=== PATIENT | female | born 1955 | race Caucasian/White ===

== ENCOUNTER 2020-01-01 21:05 | Inpatient (IN) | payer OTHER, MEDICAID, SELFPAY ==
[~2020-01-01] VITALS: Ht 160 cm; Wt 45.4 kg
[2020-01-01 21:13] VITALS: Ht 160 cm; Wt 45.4 kg
[2020-01-01 22:05] LABS: BASOPHIL % 0.5 % (0-2); PLATELET COUNT 356 x10^3mcL (130-400); RED CELL DISTRIBUTION WIDTH 15.5 % (11.5-14.5)
[2020-01-01 22:21] LABS: CALCIUM 8.7 mg/dL (8.5-10.1); CARBON DIOXIDE 27.1 mmol/L (21-32); CREATININE SERUM 1.1 mg/dL (0.6-1.0); POTASSIUM SERUM 3.1 mmol/L (3.5-5.1)
[2020-01-01 22:26] LABS: ALBUMIN 3.5 g/dL (3.4-5.0); BILIRUBIN TOTAL 0.12 mg/dL (0.20-1.00); TOTAL PROTEIN, SERUM 6.6 g/dL (6.4-8.2)
[2020-01-02] VITALS (7 sets, daily range): BP systolic 116–149; BP diastolic 86–94
[2020-01-02 01:13] LABS: microscopic required? YES; urine erythrocyte NEGATIVE (NEGATIVE)
[2020-01-02 01:19] LABS: AMPHETAMINE QUAL UR NONE DETECTED (See below)
[2020-01-02 07:20] LABS: BASOPHIL % 0.2 % (0-2); PLATELET COUNT 324 x10^3mcL (130-400)
[2020-01-02 07:35] LABS: RED CELL DISTRIBUTION WIDTH 15.5 % (11.5-14.5)
[2020-01-02 09:00] LABS: CALCIUM 8.7 mg/dL (8.5-10.1); CARBON DIOXIDE 24.2 mmol/L (21-32); CHLORIDE SERUM 107 mmol/L (98-107); CREATININE SERUM 0.8 mg/dL (0.6-1.0); GFR1 > 60 mL/min; GLUCOSE SERUM 135 mg/dL (74-106); PHOSPHOROUS 2.8 mg/dL (2.5-4.9); POTASSIUM SERUM 3.6 mmol/L (3.5-5.1); SODIUM SERUM 141 mmol/L (136-145)
[2020-01-03 05:24] VITALS: BP 119/70
[2020-01-03 07:15] VITALS: BP 116/66
[2020-01-03 08:09] LABS: BASOPHIL % 0.1 % (0-2); PLATELET COUNT 337 x10^3mcL (130-400)
[2020-01-03 08:26] LABS: RED CELL DISTRIBUTION WIDTH 15.4 % (11.5-14.5)
[2020-01-03 08:31] LABS: CALCIUM 8.5 mg/dL (8.5-10.1); CARBON DIOXIDE 22.8 mmol/L (21-32); CHOLESTEROL/HDL RATIO 2.6; MAGNESIUM 2.2 mg/dL (1.8-2.4); PHOSPHOROUS 2.6 mg/dL (2.5-4.9); POTASSIUM SERUM 3.2 mmol/L (3.5-5.1)
[2020-01-03 12:30] VITALS: BP 112/70
[2020-01-03 21:30] VITALS: BP 118/63
[2020-01-04 05:13] VITALS: BP 122/71
[2020-01-04 07:29] LABS: CALCIUM 8.5 mg/dL (8.5-10.1); CHLORIDE SERUM 107 mmol/L (98-107); CREATININE SERUM 0.8 mg/dL (0.6-1.0); GFR1 > 60 mL/min; GLUCOSE SERUM 113 mg/dL (74-106); MAGNESIUM 2.2 mg/dL (1.8-2.4); PHOSPHOROUS 3.1 mg/dL (2.5-4.9); POTASSIUM SERUM 3.8 mmol/L (3.5-5.1); SODIUM SERUM 142 mmol/L (136-145)
[2020-01-04 07:36] LABS: PLATELET COUNT 310 x10^3mcL (130-400)
[2020-01-04 07:38] LABS: BASOPHIL % 0 % (0-2); RED CELL DISTRIBUTION WIDTH 15.6 % (11.5-14.5)
[2020-01-04 08:50] VITALS: BP 132/84
[2020-01-04 13:32] VITALS: BP 137/94
[2020-01-04 17:47] VITALS: BP 153/81
[2020-01-04 20:37] VITALS: BP 140/80
[2020-01-05 04:41] VITALS: BP 153/90
[2020-01-05 07:11] LABS: PLATELET COUNT 308 x10^3mcL (130-400)
[2020-01-05 07:22] LABS: BASOPHIL % 0 % (0-2); RED CELL DISTRIBUTION WIDTH 15.5 % (11.5-14.5)
[2020-01-05 07:39] LABS: CALCIUM 8.4 mg/dL (8.5-10.1); CARBON DIOXIDE 24.9 mmol/L (21-32); CHLORIDE SERUM 105 mmol/L (98-107); CREATININE SERUM 0.8 mg/dL (0.6-1.0); GFR1 > 60 mL/min; GLUCOSE SERUM 111 mg/dL (74-106); MAGNESIUM 2.2 mg/dL (1.8-2.4); PHOSPHOROUS 3.2 mg/dL (2.5-4.9); POTASSIUM SERUM 3.9 mmol/L (3.5-5.1); SODIUM SERUM 141 mmol/L (136-145)
[2020-01-05 08:43] VITALS: BP 152/94
[2020-01-05 13:33] VITALS: BP 122/71
[2020-01-05 18:18] VITALS: BP 138/81
[2020-01-05 19:10] VITALS: BP 142/78
[2020-01-06] VITALS (8 sets, daily range): BP systolic 121–142; BP diastolic 69–89
[2020-01-06 06:34] LABS: BASOPHIL % 0.2 % (0-2); PLATELET COUNT 329 x10^3mcL (130-400)
[2020-01-06 07:05] LABS: CALCIUM 7.8 mg/dL (8.5-10.1); CARBON DIOXIDE 25.2 mmol/L (21-32); CHLORIDE SERUM 104 mmol/L (98-107); CREATININE SERUM 0.9 mg/dL (0.6-1.0); GFR1 > 60 mL/min; GLUCOSE SERUM 123 mg/dL (74-106); PHOSPHOROUS 3.4 mg/dL (2.5-4.9); POTASSIUM SERUM 3.6 mmol/L (3.5-5.1); SODIUM SERUM 140 mmol/L (136-145)
[2020-01-07 05:37] VITALS: BP 130/71
[2020-01-07 07:41] LABS: PLATELET COUNT 310 x10^3mcL (130-400)
[2020-01-07 07:50] LABS: CALCIUM 8.3 mg/dL (8.5-10.1); CARBON DIOXIDE 23.5 mmol/L (21-32); CHLORIDE SERUM 104 mmol/L (98-107); CREATININE SERUM 0.8 mg/dL (0.6-1.0); GFR1 > 60 mL/min; GLUCOSE SERUM 120 mg/dL (74-106); MAGNESIUM 2.2 mg/dL (1.8-2.4); PHOSPHOROUS 3.8 mg/dL (2.5-4.9); POTASSIUM SERUM 3.5 mmol/L (3.5-5.1); SODIUM SERUM 138 mmol/L (136-145)
[2020-01-07 08:05] LABS: RED CELL DISTRIBUTION WIDTH 15.1 % (11.5-14.5)
[2020-01-07 09:28] VITALS: BP 105/63
[2020-01-07] MEDS ORDERED: BRILINTA90 M1 PO ×2 (11:28→14:53)
[2020-01-07] MEDS ORDERED: BAY PO ×2 (11:29→14:53)
[2020-01-07] MEDS ORDERED: ATORVASTATIN CA40 M1 PO ×2 (11:29→14:53)
[2020-01-07] MEDS ORDERED: ZES5 PO ×2 (11:30→14:53)
[2020-01-07 12:08] LABS: BAND NEUTROPHIL 2 % (0-10); MONOCYTE 4 % (0-7); SEGMENTED NEUTROPHILS 83 % (37-75)
[2020-01-07 12:09] LABS: rbc morphology (normal/abnorm) NORMAL (NORMAL)
[2020-01-07] MEDS ORDERED: DELTASONE20 MG PO ×2 (13:35→14:53)
[2020-01-07 13:45] VITALS: BP 122/68
[2020-01-07 14:25] VITALS: BP 122/68
== END 2020-01-07 16:20 | disposition home or self-care (01) | DRG 246 ==
LOC: ED 21:05 → DU 23:04
PROVIDERS: Emergency Medicine; Internal Medicine Geriatric Medicine; Student in an Organized Health Care Education/Training Program; ADMIT Internal Medicine; ATTEND Internal Medicine
PROC: 027036Z Dilation of Coronary Artery, One Artery with Three Drug-eluting Intraluminal Devices, Percutaneous Approach (ICD-10-PCS; 2020-01-06)
PROC: B2111ZZ Fluoroscopy of Multiple Coronary Arteries using Low Osmolar Contrast (ICD-10-PCS; 2020-01-06)
PROC: 4A023N7 Measurement of Cardiac Sampling and Pressure, Left Heart, Percutaneous Approach (ICD-10-PCS; principal; 2020-01-06 13:30)
DX: I21.A1 Myocardial infarction type 2 (principal); J96.01 Acute respiratory failure with hypoxia; E43 Unspecified severe protein-calorie malnutrition; N17.0 Acute kidney failure with tubular necrosis; J44.1 Chronic obstructive pulmonary disease with (acute) exacerbation; Z68.1 Body mass index [BMI] 19.9 or less, adult; N39.0 Urinary tract infection, site not specified; J45.909 Unspecified asthma, uncomplicated; E03.9 Hypothyroidism, unspecified; E87.6 Hypokalemia; F17.210 Nicotine dependence, cigarettes, uncomplicated; J20.9 Acute bronchitis, unspecified; I24.9 Acute ischemic heart disease, unspecified; F17.200 Nicotine dependence, unspecified, uncomplicated; Z88.5 Allergy status to narcotic agent; Z79.01 Long term (current) use of anticoagulants; Z90.49 Acquired absence of other specified parts of digestive tract
CPT/HCPCS: CLHCL; 83880; 87804; C1725; C1760; C1769; C1876; C1894; G0378; J0360; J0744; J1644; J1650; J2001; J2250; J2270; J2920; J2930; J3010; J3490; J7030; J7040; Q0092; Q9967; U0003-CS